=== PATIENT | female | born 1960 | race Two or more races ===

== ENCOUNTER 2020-08-29 08:41 | Inpatient (IN) | payer MEDICAID, OTHER ==
[~2020-08-29] VITALS: Ht 157.5 cm; Wt 111.0 kg
[2020-08-29] MEDS ORDERED: SODIUM CHLORIDE 0.9% 1,000 ML IV ONE (09:30)
[2020-08-29 09:50] LABS: Basophils # (auto) 0 10 ^3/uL (0-0.2); Basophils % (auto) 0.4 % (0.0-2.0); Eosinophils # (auto) 0.1 10 ^3/uL (0-0.8); Eosinophils % (auto) 0.4 % (0.0-7.0); Hematocrit 48.3 % (36.0-46.0); Hemoglobin 16.9 g/dL (12.2-16.2); Lymphocytes # (auto) 1.2 10 ^3/uL (0.4-5.4); Lymphocytes % (auto) 9.9 % (10.0-50.0); Mean Corpuscular Hemoglobin 29.7 pg (28.0-32.0); Mean Corpuscular Hgb Conc. 34.9 g/dL (32.0-36.0); Mean Corpuscular Volume 85.2 fL (80.0-100.0); Monocytes # (auto) 0.6 10 ^3/uL (0-1.3); Neutrophils # (auto) 10.3 10 ^3/uL (1.6-8.6); Neutrophils % (auto) 84.3 % (37.0-80.0); Platelet Count (auto) 248 10^3/uL (140-450); Red Blood Cells 5.67 10^6/uL (4.0-5.20); White Blood Cell 12.2 10^3/uL (4.4-10.8)
[2020-08-29 10:07] LABS: Albumin 3.3 g/dL (3.4-5.0); Anion Gap 6 (5-15); Blood Urea Nitrogen 19 mg/dL (7-18); Calcium 8.5 mg/dL (8.5-10.1); Carbon Dioxide 25 mmol/L (21-32); Chloride 106 mmol/L (98-107); Glucose 122 mg/dL (74-106); Potassium 3.8 mmol/L (3.5-5.1); Sodium 137 mmol/L (136-145)
[2020-08-29 10:13] LABS: Alanine Aminotransferase 22 U/L (13-56); Alkaline Phosphatase 104 U/L (45-117); Aspartate Aminotransferase 19 U/L (15-37); BUN/Creatinine Ratio 14.6; Bilirubin, Total 0.9 mg/dL (0.2-1.0); GFR African American 54 mL/min; GFR Non-African American 44 mL/min; Total Protein 7.2 g/dL (6.4-8.2)
[2020-08-29] MEDS ORDERED: metroNIDAZOLE 500MG/100ML 100 ML IV ONE ×3 (13:00→18:30)
[2020-08-29] MEDS ORDERED: cefTRIAXone 1GM/50ML D5W 50 ML IV ONE (13:00)
[2020-08-29] MEDS ORDERED: MORPHINE SULFATE 4 MG/ML SYR/VIAL IV ONE (13:00)
[2020-08-29] MEDS ORDERED: MORPHINE SULF INJ 2 MG/ML SYRINGE 1ML IV PRN ×2 (13:30→18:30)
[2020-08-29] MEDS ORDERED: NITROGLYCERIN 0.4 MG SL TAB SL PRN ×2 (13:30→18:30)
[2020-08-29] MEDS ORDERED: LACTATED RINGER'S 1,000 ML IV ONE (13:30)
[2020-08-29] MEDS ORDERED: ONDANSETRON HCL 4 MG/2 ML VIAL IV ONE (14:00)
[2020-08-29] MEDS ORDERED: ONDANSETRON HCL 4 MG/2 ML VIAL IV PRN ×2 (14:00→18:30)
[2020-08-29 14:16] LABS: Urine Bacteria FEW /hpf (None Seen); Urine Blood Negative /uL (Negative); Urine Hyaline Cast FEW /lpf (0 - 2); Urine Mucus FEW (None Seen); Urine Specific Gravity 1.024 (1.001-1.035); Urine WBC 2 /hpf (0 - 5)
[2020-08-29 14:51] LABS: INR 1.01 (0.9-1.15); Partial Thromboplastin Time 30.1 sec (23.0-31.2)
[2020-08-29] MEDS ORDERED: LABETALOL HCL 5 MG/ML 4ML SYRINGE IV ONE (16:15)
[2020-08-29] MEDS ORDERED: hydrALAZINE HCL 20 MG/ML VL IV PRN ×2 (16:15→18:30)
[2020-08-29] MEDS ORDERED: LORazepam 0.5 MG TAB PO PRN (18:30)
[2020-08-29] MEDS ORDERED: ALUM & MAG HYDROX-SIMETH LIQ(MAALOX) 30 ML PO PRN (18:30)
[2020-08-29] MEDS ORDERED: DOCUSATE SOD 100 MG CAP PO PRN (18:30)
[2020-08-29] MEDS ORDERED: ACETAMINOPHEN 325 MG TAB PO PRN (18:30)
[2020-08-29] MEDS ORDERED: HYDROcodone-ACET 5/325MG TAB PO PRN (18:30)
[2020-08-29] MEDS: SODIUM CHLORIDE 0.9% 1,000 ML IV SCH (18:41)
[2020-08-29] MEDS: MORPHINE SULF INJ 2 MG/ML SYRINGE 1ML IV PRN (19:54)
[2020-08-29 20:31] LABS: Cholesterol 169 mg/dL (< 200); HDL Cholesterol 70 mg/dL (40-59); LDL Cholesterol 85 mg/dL (< 100); Triglycerides 98 mg/dL (< 150)
[2020-08-29] MEDS: FAMOTIDINE (10MG/ML) 2ML VL IV SCH (21:35)
[2020-08-29] MEDS: metroNIDAZOLE 500MG/100ML 100 ML IV SCH (21:35)
[2020-08-29 22:00] VITALS: BP 134/92
[2020-08-30 05:00] VITALS: BP 113/77
[2020-08-30] MEDS: metroNIDAZOLE 500MG/100ML 100 ML IV SCH (06:02)
[2020-08-30 06:04] LABS: Basophils # (auto) 0 10 ^3/uL (0-0.2); Basophils % (auto) 0.2 % (0.0-2.0); Eosinophils # (auto) 0.1 10 ^3/uL (0-0.8); Eosinophils % (auto) 0.8 % (0.0-7.0); Hematocrit 43.9 % (36.0-46.0); Lymphocytes # (auto) 0.9 10 ^3/uL (0.4-5.4); Lymphocytes % (auto) 8.4 % (10.0-50.0); Mean Corpuscular Hemoglobin 29.5 pg (28.0-32.0); Mean Corpuscular Hgb Conc. 34.3 g/dL (32.0-36.0); Monocytes # (auto) 0.6 10 ^3/uL (0-1.3); Monocytes % (auto) 5.1 % (0.0-12.0); Neutrophils # (auto) 9.3 10 ^3/uL (1.6-8.6); Neutrophils % (auto) 85.5 % (37.0-80.0); Platelet Count (auto) 214 10^3/uL (140-450); Red Blood Cells 5.11 10^6/uL (4.0-5.20); Red Cell Distribution Width 15.5 % (11.8-14.3); White Blood Cell 10.9 10^3/uL (4.4-10.8)
[2020-08-30 06:19] LABS: INR 1.03 (0.9-1.15); Partial Thromboplastin Time 30.1 sec (23.0-31.2)
[2020-08-30 06:24] LABS: Chloride 108 mmol/L (98-107); Potassium 3.8 mmol/L (3.5-5.1); Sodium 138 mmol/L (136-145)
[2020-08-30 06:36] LABS: Alanine Aminotransferase 18 U/L (13-56); Alkaline Phosphatase 86 U/L (45-117); Anion Gap 6 (5-15); Aspartate Aminotransferase 12 U/L (15-37); BUN/Creatinine Ratio 14.4; Bilirubin, Total 0.8 mg/dL (0.2-1.0); Blood Urea Nitrogen 17 mg/dL (7-18); CRP High Sensitivity 4.43 mg/dL (< 0.3); Calcium 8.2 mg/dL (8.5-10.1); Carbon Dioxide 24 mmol/L (21-32); GFR African American 60 mL/min; GFR Non-African American 50 mL/min; Glucose 105 mg/dL (74-106); Phosphorus 2.9 mg/dL (2.5-4.90); Total Protein 6.5 g/dL (6.4-8.2); Uric Acid 6.1 mg/dL (2.6-6.0)
[2020-08-30] MEDS: MORPHINE SULF INJ 2 MG/ML SYRINGE 1ML IV PRN (06:50)
[2020-08-30] MEDS ORDERED: cefTRIAXone 1GM/50ML D5W 50 ML IV SCH (09:00)
[2020-08-30] MEDS: FAMOTIDINE (10MG/ML) 2ML VL IV SCH (09:11)
[2020-08-30 09:13] VITALS: BP 133/80
[2020-08-30] MEDS: SODIUM CHLORIDE 0.9% 1,000 ML IV SCH (11:10)
== END 2020-08-30 13:50 | disposition home or self-care (01) | DRG 720 ==
LOC: EDBD 08:41 → ER 08:41 → TELE 13:24 → TELE-EAST 18:21
PROVIDERS: ADMIT Hospitalist; ATTEND Hospitalist
DX: A41.9 Sepsis, unspecified organism (principal); E43 Unspecified severe protein-calorie malnutrition; K57.33 Diverticulitis of large intestine without perforation or abscess with bleeding; N17.9 Acute kidney failure, unspecified; B37.0 Candidal stomatitis; N18.31 Chronic kidney disease, stage 3a; Z68.41 Body mass index [BMI] 40.0-44.9, adult; E86.0 Dehydration; D64.9 Anemia, unspecified; Z20.822 Contact with and (suspected) exposure to COVID-19; R00.0 Tachycardia, unspecified; R06.82 Tachypnea, not elsewhere classified; D72.829 Elevated white blood cell count, unspecified; F32.9 Major depressive disorder, single episode, unspecified; I16.9 Hypertensive crisis, unspecified; Z85.41 Personal history of malignant neoplasm of cervix uteri; Z86.718 Personal history of other venous thrombosis and embolism; M79.89 Other specified soft tissue disorders
CPT/HCPCS: 36415; 71045; 74176; 80053; 80061; 81001; 82728; 83036; 83605; 83735; 83880; 84100; 84443; 84484; 84550; 85025; 85049; 85610; 85652; 85730; 86141; 86850; 86900; 86901; 87040; 87086; 87426; 93005; 96361; 96365; 96368; 96375; G0378; J0696; J2405; J3490